=== PATIENT | female | born 1990 | race Caucasian/White ===

== ENCOUNTER 2018-02-24 11:20 | Emergency (ER) | payer OTHER, BC ==
[~2018-02-24] VITALS: Ht 167.6 cm; Wt 93.9 kg
[~2018-02-24 11:20] MED LIST: CEPHALEXIN500 MG PO; CIPRODEX OTIC7.5 ML AS; CLARITIN10 MG PO; FLONASE ALLERG9.9 ML NS; IBUPROFEN800 MG PO; NAPROSYN500 MG PO; NORCO 5-325 TA1 EACH PO
== END 2018-02-24 12:28 | disposition home or self-care (01) ==
LOC: ED 11:20
DX: S93.402A Sprain of unspecified ligament of left ankle, initial encounter (principal); F17.200 Nicotine dependence, unspecified, uncomplicated; Z88.0 Allergy status to penicillin; Z79.899 Other long term (current) drug therapy; X50.9XXA Other and unspecified overexertion or strenuous movements or postures, initial encounter
CPT/HCPCS: 73610; 99283

== ENCOUNTER 2020-09-08 10:11 | Emergency (ER) | payer OTHER ==
[~2020-09-08] VITALS: Ht 167.6 cm; Wt 93.9 kg
== END 2020-09-08 11:02 | disposition home or self-care (01) ==
LOC: ED 10:11
DX: T15.92XA Foreign body on external eye, part unspecified, left eye, initial encounter (principal); Z87.891 Personal history of nicotine dependence; Z88.0 Allergy status to penicillin
CPT/HCPCS: 99283